=== PATIENT | female | born 2000 | race African-American/Black ===

== ENCOUNTER 2021-01-21 03:23 | Emergency (ER) | payer SELFPAY ==
[~2021-01-21] VITALS: Ht 157.5 cm; Wt 76.3 kg
[2021-01-21 03:33] VITALS: BP 111/73
== END 2021-01-21 06:17 | disposition left against medical advice (07) ==
LOC: ER 03:23
DX: R07.1 Chest pain on breathing (principal); Z53.21 Procedure and treatment not carried out due to patient leaving prior to being seen by health care provider
CPT/HCPCS: 93005

== ENCOUNTER 2021-09-21 09:32 | Observation (INO) | payer MEDICAID ==
[~2021-09-21] VITALS: Ht 157.5 cm; Wt 81.6 kg
[2021-09-21 11:45] LABS: CLARITY URINE CLEAR (CLEAR); COLOR URINE YELLOW (YELLOW); KETONES URINE NEGATIVE (NEGATIVE); LEUKOCYTE ESTERASE URINE TRACE (NEGATIVE); NITRITE URINE NEGATIVE (NEGATIVE); OCCULT BLOOD URINE NEGATIVE (NEGATIVE); PROTEIN URINE NEGATIVE (NEGATIVE); SPECIFIC GRAVITY URINE 1.005 (1.005-1.030); UROBILINOGEN URINE 0.2 E.U./dL (0.2-1.0)
== END 2021-09-21 12:20 | disposition home or self-care (01) ==
LOC: 8 EST LDRP 09:32
PROVIDERS: ADMIT Obstetrics & Gynecology; ATTEND Obstetrics & Gynecology
DX: O62.9 Abnormality of forces of labor, unspecified (principal); O26.893 Other specified pregnancy related conditions, third trimester; R10.9 Unspecified abdominal pain; Z3A.38 38 weeks gestation of pregnancy
CPT/HCPCS: 76805; 76818; 81003; 99281; G0378; 59025

== ENCOUNTER 2022-11-01 17:46 | Emergency (ER) | payer MEDICAID, OTHER ==
[~2022-11-01] VITALS: Ht 160 cm; Wt 82.7 kg
[2022-11-01 18:04] VITALS: O2SAT 100
[2022-11-01 18:28] LABS: HEMATOCRIT. 36.3 % (36.0-48.0); HEMOGLOBIN. 11.9 g/dL (12.0-16.0); MEAN CORPUSCULAR HEMOGLOBIN 27.6 pg (28.0-32.0); MEAN PLATELET VOLUME 7.6 fl (7.4-10.4); PLATELET 351 x1000/uL (130-400); RED BLOOD CELL COUNT 4.32 mill/uL (4.2-5.4); RED CELL DISTRIBUTION WIDTH 17.9 % (11.6-14.6)
[2022-11-01 18:38] LABS: CHLORIDE 110 mEq/L (98-107)
[2022-11-01 19:12] LABS: PLATELET ESTIMATE NORMAL
[2022-11-01 21:17] LABS: HCG SCREEN NEGATIVE
[2022-11-01] MEDS ORDERED: ACETAMINOPHEN 325MG TABLET PO ONE (21:30)
[2022-11-01] MEDS ORDERED: ONDANSETRON 4MG ODT PO ONE (21:30)
[2022-11-01] MEDS ORDERED: SODIUM CHLORIDE 0.9% 1,000 ML IV ONE (21:30)
[2022-11-01] MEDS ORDERED: ONDA4TAB50 MT ×2 (23:52)
[2022-11-02] MEDS ORDERED: IBUP-2437 MT ×3 (00:26→00:28)
[2022-11-02] MEDS ORDERED: ONDA4TAB50 MT (00:28)
[2022-11-02 00:38] VITALS: BP 125/87; PULSE 87; RESP 20; TEMP 97.9
== END 2022-11-02 00:40 | disposition home or self-care (01) ==
LOC: ER 17:46
DX: K52.9 Noninfective gastroenteritis and colitis, unspecified (principal); D64.9 Anemia, unspecified
CPT/HCPCS: 80053; 84703; 83690; 85025; 36415; 96360; 96361; 99283; Q0162; Z7610

== ENCOUNTER 2023-12-11 22:51 | Emergency (ER) | payer OTHER ==
[~2023-12-11] VITALS: Ht 160 cm; Wt 90.9 kg
[~2023-12-11 22:51] MED LIST: IBUP-2437 MT; ONDA4TAB50 MT
[2023-12-11 22:53] VITALS: BP 151/88; PULSE 64; RESP 16; TEMP 98.7; O2SAT 100
[2023-12-11] MEDS: AZITHROMYCIN 500 MG TABLET PO ONE (23:45)
[2023-12-12 03:17] LABS: CLARITY URINE CLEAR (CLEAR); COLOR URINE YELLOW (YELLOW); GLUCOSE URINE NEGATIVE (NEGATIVE); KETONES URINE NEGATIVE (NEGATIVE); LEUKOCYTE ESTERASE URINE NEGATIVE (NEGATIVE); NITRITE URINE NEGATIVE (NEGATIVE); OCCULT BLOOD URINE NEGATIVE (NEGATIVE); PH URINE 7.5 (4.5-8.0); PROTEIN URINE NEGATIVE (NEGATIVE); SPECIFIC GRAVITY URINE 1.002 (1.005-1.030); UROBILINOGEN URINE 0.2 E.U./dL (0.2-1.0)
[2023-12-14 07:07] LABS: CHLAMYDIA TRACHOMATIS NAA Negative (Negative); NEISSERIA GONORRHOEAE NAA Negative (Negative)
== END 2023-12-12 03:07 | disposition home or self-care (01) ==
LOC: ER 22:51
DX: R10.2 Pelvic and perineal pain (principal); D64.9 Anemia, unspecified; Z88.0 Allergy status to penicillin
CPT/HCPCS: 76830; 76856; 81003; 87210; 87491; 87591; 99284

== ENCOUNTER 2024-03-03 21:12 | Emergency (ER) | payer OTHER ==
[~2024-03-03] VITALS: Ht 160 cm; Wt 89.0 kg
[2024-03-03 21:18] VITALS: O2SAT 100
[2024-03-03 21:27] VITALS: BP 143/93; PULSE 70; RESP 18; TEMP 98.4; O2SAT 100
[2024-03-03] MEDS: AZITHROMYCIN 500 MG TABLET PO ONE (21:30)
== END 2024-03-03 22:25 | disposition home or self-care (01) ==
LOC: ER 21:12
DX: N89.8 Other specified noninflammatory disorders of vagina (principal); D64.9 Anemia, unspecified; Z88.0 Allergy status to penicillin
CPT/HCPCS: 99283

== ENCOUNTER 2024-07-06 12:21 | Emergency (ER) | payer OTHER ==
[~2024-07-06] VITALS: Ht 167.6 cm; Wt 67.0 kg
[~2024-07-06 12:21] MED LIST changes: +NITR-87 MT; +NITR0.4T49 SL
[2024-07-06 12:25] VITALS: O2SAT 100
[2024-07-06 12:41] VITALS: BP 115/72; PULSE 79; RESP 16; TEMP 36.7; O2SAT 99
[2024-07-06 14:13] LABS: CLARITY URINE CLEAR (CLEAR); COLOR URINE YELLOW (YELLOW); GLUCOSE URINE NEGATIVE (NEGATIVE); KETONES URINE TRACE (NEGATIVE); LEUKOCYTE ESTERASE URINE 2+ (NEGATIVE); NITRITE URINE NEGATIVE (NEGATIVE); OCCULT BLOOD URINE NEGATIVE (NEGATIVE); PH URINE 6.5 (4.5-8.0); PROTEIN URINE TRACE (NEGATIVE); SPECIFIC GRAVITY URINE 1.032 (1.005-1.030)
[2024-07-06] MEDS ORDERED: DOXY100T2 MT (14:26)
[2024-07-06 14:33] LABS: SQUAMOUS EPITHELIAL CELL URINE 3+ /lpf (RARE/1+)
[2024-07-06 14:34] LABS: RBC URINE 0-2 /hpf (0-2)
[2024-07-06 14:35] LABS: BACTERIA URINE TRACE
[2024-07-06 14:36] LABS: MUCUS URINE 1+ /lpf (< = 2+)
[2024-07-06] MEDS: AZITHROMYCIN 500 MG TABLET PO ONE (15:30)
[2024-07-06] MEDS: GENTAMICIN SULF 40MG/ML 2ML VIAL IM ONE (15:34)
== END 2024-07-06 15:38 | disposition left against medical advice (07) ==
LOC: ER 12:21
DX: R07.89 Other chest pain (principal); Z53.29 Procedure and treatment not carried out because of patient's decision for other reasons; Z79.899 Other long term (current) drug therapy; Z88.0 Allergy status to penicillin
CPT/HCPCS: 99284; 71045; 81003; 81025; 96372; J1580

== ENCOUNTER 2024-12-05 03:22 | Emergency (ER) | payer OTHER ==
[~2024-12-05] VITALS: Ht 160 cm; Wt 90.6 kg
[~2024-12-05 03:22] MED LIST changes: +DOXY100T2 MT
[2024-12-05 03:25] VITALS: O2SAT 100
[2024-12-05 04:16] LABS: BASOPHILS % 0.5 % (0.0-2.0); EOSINOPHILS % 1.3 % (0.0-5.0); HEMATOCRIT. 30.5 % (36.0-48.0); HEMOGLOBIN. 10.2 g/dL (12.0-16.0); LYMPHOCYTES % 34.1 % (20.0-50.0); MEAN PLATELET VOLUME 7.8 fl (7.4-10.4); MONOCYTES % 8.6 % (2.0-8.0); NEUTROPHILS % 55.5 % (40.0-76.0); PLATELET 398 x1000/uL (130-400); RED BLOOD CELL COUNT 3.66 mill/uL (4.2-5.4); RED CELL DISTRIBUTION WIDTH 15.4 % (11.6-14.6)
[2024-12-05 04:30] LABS: CREATININE 0.8 mg/dL (0.6-1.0)
[2024-12-05 04:31] LABS: ETHANOL BLOOD < 10 mg/dL (<10); TROPONIN I HIGH SENSITIVITY 15 ng/L (3.0-34); UREA NITROGEN BLOOD 10 mg/dL (9-23)
[2024-12-05] MEDS ORDERED: DOXY100C5 MT (05:16)
[2024-12-05] MEDS: CEFTRIAXONE SODIUM 500MG VIAL IM ONE (06:01)
[2024-12-05] MEDS: FLUCONAZOLE 150MG TABLET PO ONE (06:02)
[2024-12-05] MEDS: DOXYCYCLINE HYCLATE 100MG CAPSULE PO ONE (06:02)
[2024-12-05 06:19] VITALS: BP 128/84; PULSE 83; RESP 16; TEMP 36.7; O2SAT 95
== END 2024-12-05 06:22 | disposition home or self-care (01) ==
LOC: ER 03:22
DX: R07.89 Other chest pain (principal); R06.02 Shortness of breath; Z88.0 Allergy status to penicillin; Z79.899 Other long term (current) drug therapy
CPT/HCPCS: 80048; 80320; 85025; 84484; 36415; 71045; 93005; 96372; 99285; J0696; Z7610; G0480

== ENCOUNTER 2025-01-21 02:08 | Emergency (ER) | payer OTHER ==
[~2025-01-21] VITALS: Ht 157.5 cm; Wt 80.0 kg
[~2025-01-21 02:08] MED LIST changes: +DOXY100C5 MT
[2025-01-21 02:17] VITALS: O2SAT 100
[2025-01-21 04:24] LABS: BASOPHILS % 0.6 % (0.0-2.0); EOSINOPHILS % 1.3 % (0.0-5.0); HEMATOCRIT. 34.1 % (36.0-48.0); HEMOGLOBIN. 10.5 g/dL (12.0-16.0); LYMPHOCYTES % 39.2 % (20.0-50.0); MEAN PLATELET VOLUME 8.0 fl (7.4-10.4); MONOCYTES % 8.0 % (2.0-8.0); NEUTROPHILS % 50.9 % (40.0-76.0); PLATELET 344 x1000/uL (130-400); RED BLOOD CELL COUNT 4.22 mill/uL (4.2-5.4); RED CELL DISTRIBUTION WIDTH 16.5 % (11.6-14.6)
[2025-01-21 04:37] LABS: CREATININE 0.8 mg/dL (0.6-1.0); UREA NITROGEN BLOOD 7 mg/dL (9-23)
[2025-01-21 04:38] LABS: B-HCG QUANTITATIVE 2 mIU/mL (<6)
[2025-01-21 05:33] VITALS: BP 100/52; PULSE 81; RESP 15; TEMP 36.7; O2SAT 100
[2025-01-23 04:09] LABS: CHLAMYDIA TRACHOMATIS NAA Negative (Negative); NEISSERIA GONORRHOEAE NAA Negative (Negative)
== END 2025-01-21 05:35 | disposition home or self-care (01) ==
LOC: ER 02:08
DX: N93.9 Abnormal uterine and vaginal bleeding, unspecified (principal); R10.2 Pelvic and perineal pain; Z88.0 Allergy status to penicillin; Z91.013 Allergy to seafood
CPT/HCPCS: 36415; 76830; 76856; 80048; 81025; 84702; 85025; 86850; 86900; 87491; 87591; 99284; A4606